=== PATIENT | female | born 1970 | race Caucasian/White ===

== ENCOUNTER 2018-03-06 10:56 | Emergency (ER) | payer MEDICAID, OTHER ==
[2018-03-06 11:02] VITALS: BP 113/81
--- NOTE | 2018-03-06 12:00 | EDPHY ---
H & P Time Seen by Provider: 03/06/18 11:10 HPI/ROS: CHIEF COMPLAINT: Back pain HISTORY OF PRESENT ILLNESS: 47-year-old female presents to the emergency department with pain in her back. The patient states that she was at work yesterday afternoon and was carrying something and stepped down from a stool and her left foot slipped and she cut and caught herself. She immediately felt pain in her left mid to low back. No radiation of pain. She has had problems with her back in the past that have been worse than this episode. She denies weakness in her lower legs. Denies numbness or tingling in her lower legs. Denies chest pain or difficulty breathing. Denies abdominal pain. No bowel or bladder incontinence. REVIEW OF SYSTEMS: Constitutional: No fever, no chills. Eyes: No double or blurry vision. ENT: No sore throat. Respiratory: No cough, no shortness of breath. Cardiac: No chest pain. Gastrointestinal: No abdominal pain, vomiting or diarrhea. Genitourinary: No dysuria. Musculoskeletal: Back pain as above. No neck pain. Skin: No rashes. Neurological: No headache. Past Medical/Surgical History: Back pain, hysterectomy, kidney stones Social History: Single and lives in [place]. She works at [employer] Smoking Status: Never smoked Physical Exam: General Appearance: Alert, no distress. Eyes: Pupils equal and round. Extraocular motions are all intact. ENT: Mouth: Mucous membranes moist. Respiratory: No wheezing, rhonchi, or rales, lungs are clear to auscultation. Cardiovascular: Regular rate and rhythm. Gastrointestinal: Abdomen is soft and nontender, no masses, no rebound or guarding, bowel sounds normal. Neurological: Alert and oriented x 3, cranial nerves II through XII grossly intact Skin: Warm and dry, no rashes. Musculoskeletal: Nontender to palpate along the cervical, thoracic or lumbar spine. Neck is supple. The patient does have reproducible pain with palpation to the left lateral aspect of her mid to lower thoracic spine. No palpable crepitus or other bony abnormality. Extremities: Full range of motion and no peripheral edema. Psychiatric: Patient is oriented X 3, there is no agitation. Constitutional: Initial Vital Signs Temperature (C) 36.7 C 03/06/18 10:59 Heart Rate 80 03/06/18 10:59 Respiratory Rate 16 03/06/18 10:59 Blood Pressure 113/81 H 03/06/18 10:59 O2 Sat (%) 97 03/06/18 10:59 O2 Delivery Mode Room Air Allergies/Adverse Reactions: No Known Allergies Allergy (Verified 03/06/18 10:58) Home Medications: Medication Instructions Recorded Cyclobenzaprine [Flexeril] 10 mg PO TIDPRN PRN #12 tab 03/06/18 oxyCODONE/APAP 5/325 [Percocet 1 - 2 tab PO Q4-6PRN PRN #15 tab 03/06/18 5/325] Medical Decision Making ED Course/Re-evaluation: 47-year-old female presents emergency department with back pain. I do not think imaging studies are indicated. I do not think the patient requires emergent MRI. The patient will be treated symptomatically with anti-inflammatories, muscle relaxers. She was also given prescription for Percocet to help her sleep. She was given work restrictions as well as work comp follow-up. She was instructed to follow up or return to the emergency department if she developed numbness or tingling in her lower extremities, feelings of weakness in her lower legs, bowel or bladder incontinence, or any other concerns. Differential Diagnosis: Back pain including but not limited to muscular pain, herniated disc, spine fracture, intra-abdominal causes and urinary tract infection. Departure - Departure Disposition: Home, Routine, Self-Care Clinical Impression: Back pain Qualifiers: Back pain location: thoracic back pain Chronicity: acute Back pain laterality: left Qualified Code(s): M54.6 - Pain in thoracic spine Condition: Good Instructions: Back Pain (ED) Additional Instructions: Ibuprofen 600 mg every 8 hr as needed for pain. Flexeril as needed for muscular spasm. Caution drowsiness with this medication. Percocet for severe pain as directed. Caution drowsiness with this medication. Deep breaths as discussed. Return to the emergency department if you feel short of breath, if you develop increasing pain, or if you feel worse in any way. Referrals: Work Comp Ref/Restrictions [Outside] - As per Instructions Stand Alone Forms: Work Limited Duty Prescriptions: Cyclobenzaprine [Flexeril] 10 mg PO TIDPRN PRN #12 tab PRN Reason: P.r.n. Spasms oxyCODONE/APAP 5/325 [Percocet ] 1 - 2 tab PO Q4-6PRN PRN #15 tab PRN Reason: For Moderate To Severe Pain
== END 2018-03-06 12:06 | disposition home or self-care (01) ==
DX: S29.9XXA Unspecified injury of thorax, initial encounter (principal); W01.0XXA Fall on same level from slipping, tripping and stumbling without subsequent striking against object, initial encounter; Y92.69 Other specified industrial and construction area as the place of occurrence of the external cause; Y99.0 Civilian activity done for income or pay; Y93.89 Activity, other specified